=== PATIENT | female | born 1985 ===

== ENCOUNTER 2021-04-29 16:28 | Inpatient (IN) | payer SELFPAY ==
[2021-04-29] MEDS ORDERED: ONDANSETRON 4 MG/2 ML INJ IV ONE (17:31)
[2021-04-29] MEDS ORDERED: MORPHINE 4 MG/1 ML INJ IV ONE (17:31)
--- NOTE | 2021-04-29 17:32 | Emergency Department Report ---
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 Patient states that the pain woke up around 3 AM this morning. Patient reports associated nausea and vomiting. Patient states that she is about 4 months . She does not recall her last menstrual cycle. She has not started any care. She denies any vaginal bleeding, diarrhea, constipation or UTI symptoms. She denies any apparent fever or chills. She denies any ill contacts or recent travel. Only abdominal surgeries in the past 4-6 sections. She is G5, P3 AB1. MD Complaint: abdominal pain -: This morning Location: diffuse - Related Data Allergies Allergy/AdvReac Type Severity Reaction Status Date / Time No Known Allergies Allergy Verified 04/29/21 16:34 ED Physical Exam - General Limitations: Language Barrier General appearance: alert, in distress, obese - Head Head exam: Present: atraumatic, normocephalic, normal inspection - Neck Neck exam: Present: normal inspection, full ROM. Absent: meningismus - Respiratory Respiratory exam: Present: normal lung sounds bilaterally. Absent: respiratory distress, wheezes, rales, rhonchi, stridor - Cardiovascular Cardiovascular Exam: Present: regular rate, normal rhythm, normal heart sounds - GI/Abdominal GI/Abdominal exam: Present: soft, tenderness (Right upper quadrant, epigastric, and diffusely to the lower quadrants of the abdomen), guarding. Absent: distended, rebound, rigid - Neurological Exam Neurological exam: Present: alert, oriented X3, CN II-XII intact, normal gait - Psychiatric Psychiatric exam: Present: normal affect, normal mood - Skin Skin exam: Present: intact ED Medical Decision Making - Lab Data Result diagrams: 04/29/21 17:39 04/29/21 17:39 - Radiology Data Radiology results: report reviewed Patient: ASHWINI IRELAND MR#: [id number] : 1985 Acct:[id number] Age/Sex: 35 / F ADM Date: 04/29/21 Loc: ED Attending Dr: Ordering Physician: BOBY PALOMO Date of Service: 04/29/21 Procedure(s): US abdomen limited Accession Number(s): [id number] cc: BOBY PALOMO ULTRASOUND ABDOMEN, LIMITED INDICATION / CLINICAL INFORMATION: severe upper abd pain. Patient is 16 weeks . COMPARISON: None available. FINDINGS: PANCREAS: Visualized portion shows no significant abnormality. LIVER: No significant abnormality. Normal hepatopedal blood flow in the main portal vein. GALLBLADDER: Multiple tiny echogenic gallstones. No gallbladder wall thickening or edema. BILE DUCTS: No significant abnormality. Common bile duct measures 4.8 mm. FREE FLUID: None. ADDITIONAL FINDINGS: None. IMPRESSION: 1. Tiny gallstones but no sonographic evidence for acute cholecystitis. Signer Name: Gracie Walsh MD Signed: 04/29/2021 7:09 PM Workstation Name: [id number] Transcribed By: DT Dictated By: Jesús Walsh MD Electronically Authenticated By: Jesús Walsh MD Signed Date/Time: 04/29/211908 DD/ 07 TD/TT: Patient: ASHWINI IRELAND MR#: [id number] : 1985 Acct:[id number] Age/Sex: 35 / F ADM Date: 04/29/21 Loc: ED Attending Dr: Ordering Physician: BOBY PALOMO Date of Service: 04/29/21 Procedure(s): US OB >= 14 wk fetus add gest Accession Number(s): [id number] cc: BOBY PALOMO ULTRASOUND OBSTETRIC INDICATION / CLINICAL INFORMATION: 4mths preg/severe abd pain. - Clinical Gestational Age (GA) in weeks, days: 16, 4 TECHNIQUE: Transabdominal. COMPARISON: None available. FINDINGS: Single intrauterine . Biparietal Diameter = 4.4 cm = 19, 1 weeks, days Head Circumference = 15.4 cm = 18, 3 weeks, days Abdominal Circumference = 14.0 cm = 19, 2 weeks, days Femur Length = 2.3 cm = 18, 6 weeks, days Average Ultrasound Age (AUA) = 18, 6 weeks, days Heart Rate: 143 beats per minute. Estimated Weight in grams (if calculated): 290 g Estimated Weight Growth Percentile (if calculated): Not calculated Position: cephalic. Cervix: closed. Length in cm (if measured): Not measured. Placenta: anterior and free of the os. Amniotic Fluid Volume: Subjectively normal Amniotic Fluid Index (KATEY) in cm (if calculated): 4.7. Maternal Adnexa: Not demonstrated. IMPRESSION: 1. Single, living intrauterine with estimated sonographic age of 18, 6 weeks, days. 2. No acute sonographic abnormality. Signer Name: Gracie Walsh MD Signed: 04/29/2021 7:13 PM Workstation Name: [id number][id number] Transcribed By: DT Dictated By: Jesús Walsh MD Electronically Authenticated By: Jesús Walsh MD Signed Date/Time: 04/29/211912 DD/ 09 TD/TT: - Medical Decision Making 2114: Labs reviewed --CBC shows leukocytosis with white count of 15.9, remainder of her lab work unremarkable. Gallbladder ultrasound shows gallstones but no cholecystitis. OB ultrasound shows 18 weeks 6 days IUP. Patient was reassessed after giving IV fluids, morphine and Zofran. Patient states that she still in pain but more so in her right lower quadrant. Repeat abdominal exam shows that patient has moderate right lower quadrant tenderness with guarding. No rebound. No rigidity. Case was discussed with Dr. Gaston, who saw and evaluated patient. Case turned over to Dr. Gaston and see her note for details. ED Disposition Clinical Impression: Right lower quadrant abdominal pain, Leukocytosis, 18 weeks gestation of , Urine WBC increased, Dehydration, Nausea and vomiting Disposition: ADMITTED INPATIENT Condition: Stable Instructions: Abdominal Pain (ED) Referrals: PRIMARY CARE, [Primary Care Provider] - 3-5 Days <AMY GASTON - Last Filed: 04/29/21 22:12> ED Review of Systems ROS: Stated complaint: AB PAIN Other details as noted in HPI ED Course Vital Signs 04/29/21 04/29/21 04/29/21 16:34 21:38 21:54 Temperature 99.0 F Pulse Rate 85 84 Respiratory 16 14 Rate Blood Pressure 149/91 133/80 [Left] O2 Sat by Pulse 100 100 Oximetry - Consultations Consultation #1: 04/29/21 22:11 I did discuss case with Dr. Alves general surgeon on-call see MDM. Case discussed with RELAY TESTER HELPER on-call Dr. Calle who has agreed to admit the patient. ED Medical Decision Making - Lab Data Result diagrams: 04/29/21 17:39 04/29/21 17:39 - Medical Decision Making I evaluated patient at the bedside with help of photographs curator Vincent. Patient's pain now localized to the right lower quadrant leukocytosis with out signs of UTI. Symptoms concerning for acute appendicitis in . I discussed case with Dr. Alves general surgeon who advised for definitive imaging to confirm diagnosis to prevent an unnecessary surgery. I discussed gloria ging options with patient. At this time patient does not have peritoneal signs suggestive of perforated appendicitis and is not septic or ill-appearing. It was discussed that if patient has nonruptured appendicitis she would be treated with IV antibiotics with plan for surgery tomorrow. Since patient is stable at this time patient was provided the option for CT scan with radiation exposure to fetus (explained low risk for injury) tonight or antibiotic treatment with plan for MRI tomorrow. Patient prefers to wait for MRI tomorrow and will be treated empirically with Zosyn for possible appendicitis. RELAY TESTER HELPER also consulted and case discussed with Dr. Calle who has agreed to admit the patient. Critical Care Time: No Critical care attestation.: If time is entered above; I have spent that time in minutes in the direct care of this critically ill patient, excluding procedure time. ED Disposition Is pt being admited?: Yes Time of Disposition: 21:59
[2021-04-29 18:21] LABS: Basophils % (Auto) 0.2 % (0.0-1.8); Eosinophils % (Auto) 0.2 % (0.0-4.3); Hemoglobin 12.1 gm/dl (10.1-14.3); Lymphocytes # (Auto) 1.3 K/mm3 (1.2-5.4); Lymphocytes % (Auto) 8.1 % (13.4-35.0); Mean Corpuscular HGB Conc 33 % (30-34); Mean Corpuscular Volume 73 fl (79-97); Monocytes # (Auto) 0.5 K/mm3 (0.0-0.8); Platelet Count 301 K/mm3 (140-440); Red Blood Count 5.05 M/mm3 (3.65-5.03); Red Cell Distribution Width 16.9 % (13.2-15.2)
[2021-04-29 18:59] LABS: Alanine Aminotransferase 12 units/L (7-56); Albumin 3.8 g/dL (3.9-5); Blood Urea Nitrogen 7 mg/dL (7-17); Calcium 8.9 mg/dL (8.4-10.2); Hemolysis Index 4
[2021-04-29 19:00] LABS: BUN/Creatinine Ratio 23
--- NOTE | 2021-04-29 19:13 | Ultrasound Report ---
ULTRASOUND ABDOMEN, LIMITED INDICATION / CLINICAL INFORMATION: severe upper abd pain. Patient is 16 weeks . COMPARISON: None available. FINDINGS: PANCREAS: Visualized portion shows no significant abnormality. LIVER: No significant abnormality. Normal hepatopedal blood flow in the main portal vein. GALLBLADDER: Multiple tiny echogenic gallstones. No gallbladder wall thickening or edema. BILE DUCTS: No significant abnormality. Common bile duct measures 4.8 mm. FREE FLUID: None. ADDITIONAL FINDINGS: None. IMPRESSION: 1. Tiny gallstones but no sonographic evidence for acute cholecystitis. Signer Name: Gracie Walsh MD Signed: 04/29/2021 7:09 PM Workstation Name: [id number]
--- NOTE | 2021-04-29 19:17 | Ultrasound Report ---
ULTRASOUND OBSTETRIC INDICATION / CLINICAL INFORMATION: 4mths preg/severe abd pain. - Clinical Gestational Age (GA) in weeks, days: 16, 4 TECHNIQUE: Transabdominal. COMPARISON: None available. FINDINGS: Single intrauterine . Biparietal Diameter = 4.4 cm = 19, 1 weeks, days Head Circumference = 15.4 cm = 18, 3 weeks, days Abdominal Circumference = 14.0 cm = 19, 2 weeks, days Femur Length = 2.3 cm = 18, 6 weeks, days Average Ultrasound Age (AUA) = 18, 6 weeks, days Heart Rate: 143 beats per minute. Estimated Weight in grams (if calculated): 290 g Estimated Weight Growth Percentile (if calculated): Not calculated Position: cephalic. Cervix: closed. Length in cm (if measured): Not measured. Placenta: anterior and free of the os. Amniotic Fluid Volume: Subjectively normal Amniotic Fluid Index (KATEY) in cm (if calculated): 4.7. Maternal Adnexa: Not demonstrated. IMPRESSION: 1. Single, living intrauterine with estimated sonographic age of 18, 6 weeks, days. 2. No acute sonographic abnormality. Signer Name: Gracie Walsh MD Signed: 04/29/2021 7:13 PM Workstation Name: [id number]
[2021-04-29] MEDS ORDERED: SODIUM CHLORIDE 0.9% 1000 ML 1,000 ML IV ONE (19:36)
[2021-04-29 20:39] LABS: Bilirubin,Urine NEG (Negative); Blood,Urine NEG (Negative); Color,Urine Yellow (Yellow); Urobilinogen,Urine < 2.0 mg/dL (<2.0)
[2021-04-29] MEDS ORDERED: PIPERACIL/TAZOBACTA 4.5/NS 100 4.5 GM/100 ML VIAL IV ONE (21:31)
[2021-04-29] MEDS ORDERED: MORPHINE 2 MG/1 ML INJ IV ONE (21:38)
--- NOTE | 2021-04-29 21:43 | Event Note ---
Date: 04/29/[address] Gaston about patient. Will see patient tomorrow, in the meantime she will start abx and talk to the patient about imaging options in attempt to confirmatory diagnosis.
[2021-04-29] MEDS ORDERED: ACETAMINOPHEN 325 MG TAB PO PRN (22:10)
--- NOTE | 2021-04-29 22:53 | History and Physical Report ---
History of Present Illness Date of examination: 04/29/21 Date of admission: 04/29/2021 Chief complaint: RLQ pain History of present illness: 35 y/o at 18-6/7 weeks presents to main ED reporting sudden onset dull RLQ pain with accompanying N/V. Leukocytosis noted on CBC. General surgery was consulted. Gallstones noted on abdominal ultrasound, but no cholecystitis and LFT's WNL. The patient is being admitted for observation, CBC in AM, and MRI abdomen abdomen in AM to evaluate for appendicitis. Empiric Zosyn ordered. Patient NPO. 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 Family/Genetic History: none - Obstetrical History Expected Date of Delivery: 09/24/21 Actual Gestation: 19 Week(s) 0 Day(s) : 5 Para: 3 Hx # Term Pregnancies: 3 Spontaneous Abortions: 1 Medications and Allergies Allergies Allergy/AdvReac Type Severity Reaction Status Date / Time No Known Allergies Allergy Verified 04/29/21 16:34 Active Meds: Active Medications Dextrose/Lactated Ringer's (D5lr) 1,000 mls @ 125 mls/hr IV DIRECT KEVIN Piperacillin Sod/Tazobactam Sod (Zosyn/Ns 4.5gm/100ml) 4.5 gm in 100 mls @ 200 mls/hr IV Q6HR ONE; Protocol Stop: 04/29/21 23:18 Morphine Sulfate (Morphine 2 Mg/1 Ml Inj) 2 mg IV Q4H PRN PRN Reason: Pain, Mild (1-3) Review of Systems All systems: negative Gastrointestinal: abdominal pain, nausea, vomiting - Vital Signs Vital signs: Vital Signs Pulse Resp BP Pulse Ox 85 16 149/91 100 04/29/21 16:34 04/29/21 16:34 04/29/21 16:34 04/29/21 16:34 Temp Pulse Resp BP Pulse Ox 99.0 F 84 14 133/80 100 04/29/21 21:54 04/29/21 21:38 04/29/21 22:28 04/29/21 21:38 04/29/21 21:38 - Physical Exam Breasts: Positive: normal Cardiovascular: Regular rate Lungs: Positive: Clear to auscultation Abdomen: Positive: tenderness Genitourinary (Female): Positive: normal external genitalia, normal perenium Vulva: both: normal Vagina: Positive: normal moisture Uterus: Positive: enlarged Adnexa: both: normal Anus/Rectum: Positive: normal perianal skin Deep Tendon Reflex Grade: Normal +2 - Obstetrical FHR: auscultation normal Results Result Diagrams: 04/29/21 17:39 04/29/21 17:39 Abnormal lab results 04/29/21 04/29/21 04/29/21 Range/Units 17:39 17:39 17:39 WBC 15.9 H (4.5-11.0) K/mm3 RBC 5.05 H (3.65-5.03) M/mm3 MCV 73 L (79-97) fl MCH 24 L (28-32) pg RDW 16.9 H (13.2-15.2) % Lymph % (Auto) 8.1 L (13.4-35.0) % Seg Neutrophils % 88.5 H (40.0-70.0) % Seg Neutrophils # 14.1 H (1.8-7.7) K/mm3 Sodium 134 L (137-145) mmol/L Carbon Dioxide 21 L (22-30) mmol/L Creatinine 0.3 L (0.6-1.2) mg/dL Glucose 145 H (65-100) mg/dL Albumin 3.8 L (3.9-5) g/dL HCG, Quant 33983 H (0-4) mIU/mL Urine WBC (Auto) (0.0-6.0) /HPF 04/29/21 Range/Units Unknown WBC (4.5-11.0) K/mm3 RBC (3.65-5.03) M/mm3 MCV (79-97) fl MCH (28-32) pg RDW (13.2-15.2) % Lymph % (Auto) (13.4-35.0) % Seg Neutrophils % (40.0-70.0) % Seg Neutrophils # (1.8-7.7) K/mm3 Sodium (137-145) mmol/L Carbon Dioxide (22-30) mmol/L Creatinine (0.6-1.2) mg/dL Glucose (65-100) mg/dL Albumin (3.9-5) g/dL HCG, Quant (0-4) mIU/mL Urine WBC (Auto) 10.0 H (0.0-6.0) /HPF All other labs normal. Ultrasound: report reviewed MRI: pending Assessment and Plan - Patient Problems (1) 18 weeks gestation of Current Visit: Yes Status: Acute Plan to address problem: No care yet. EDC is based on todays sonogram. (2) Right lower quadrant abdominal pain Current Visit: Yes Status: Acute Plan to address problem: Appendicitis is suspected. General surgery was consulted and saw patient in E.D.. Repeat CBC in AM. MRI abdomen in AM. Zosyn being given. (3) Advanced maternal age during in second trimester Current Visit: Yes Status: Acute Plan to address problem: Needs to F/U with MFM as an outpatient. I recommend cfDNA NIPT.
[2021-04-29] MEDS ORDERED: D5W/LACTATED RINGERS 1,000 ML IV SCH (23:00)
[2021-04-29] MEDS: MORPHINE 2 MG/1 ML INJ IV PRN (23:35)
[2021-04-30] MEDS: MORPHINE 2 MG/1 ML INJ IV PRN ×2 (00:52→07:50)
[2021-04-30] MEDS: PIPERACIL/TAZOBACTA 4.5/NS 100 4.5 GM/100 ML VIAL IV SCH ×4 (05:38→22:50)
[2021-04-30 07:26] LABS: Basophils # (Auto) 0.1 K/mm3 (0.0-0.1); Basophils % (Auto) 0.6 % (0.0-1.8); Eosinophils # (Auto) 0.1 K/mm3 (0.0-0.4); Eosinophils % (Auto) 0.5 % (0.0-4.3); Hematocrit 34.7 % (30.3-42.9); Hemoglobin 11.4 gm/dl (10.1-14.3); Lymphocytes # (Auto) 1.8 K/mm3 (1.2-5.4); Lymphocytes % (Auto) 12.5 % (13.4-35.0); Mean Corpuscular HGB Conc 33 % (30-34); Mean Corpuscular Volume 73 fl (79-97); Monocytes # (Auto) 0.7 K/mm3 (0.0-0.8); Monocytes % (Auto) 5.2 % (0.0-7.3); Platelet Count 311 K/mm3 (140-440); Red Blood Count 4.74 M/mm3 (3.65-5.03); Red Cell Distribution Width 17.4 % (13.2-15.2)
--- NOTE | 2021-04-30 10:26 | Magnetic Resonance Report ---
MRI ABDOMEN WITHOUT CONTRAST INDICATION / CLINICAL INFORMATION: RLQ pain, Leukocytosis, 18 weeks . TECHNIQUE: Multiplanar, multisequence series were obtained through the abdomen. COMPARISON: Ultrasound abdomen limited performed yesterday FINDINGS: LIVER: The visualized liver is unremarkable. GALLBLADDER: Multiple small gallstones are identified in the gallbladder. No abnormal dilatation or w all thickening. BILE DUCTS: No significant abnormality. PANCREAS: No significant abnormality. SPLEEN: No significant abnormality. ADRENALS: No significant abnormality. RIGHT KIDNEY AND URETER: There is mild right hydronephrosis likely secondary to external compression of the right ureter from an intrauterine . No focal right renal lesion is appreciated. LEFT KIDNEY AND URETER: No significant abnormality. STOMACH AND VISUALIZED BOWEL: No significant abnormality. The appendix is identified in the right low er quadrant and measures 7 mm in diameter. No evidence for acute appendicitis. PERITONEUM: Trace ascites is noted in the lower abdomen. No free air. No fluid collection. LYMPH NODES: No significant adenopathy. AORTA and ARTERIES: No significant abnormality. IVC and VEINS: No significant abnormality. ADDITIONAL FINDINGS: The uterus is enlarged and contains an intrauterine in cephalic positi on. The placenta is anterior. Amniotic fluid volume appears normal. No gross abnormality is denisa reciated. SKELETAL SYSTEM: No significant abnormality. IMPRESSION: Mild right hydronephrosis. Cholelithiasis. The appendix is visualized in the right lower quadrant and measures 7 mm in diameter which is within normal limits. No convincing evidence for acute appendicitis on noncontrast MR. Signer Name: Herman Bashir Jr, MD Signed: 04/30/2021 10:21 AM Workstation Name: [id number]
--- NOTE | 2021-04-30 11:00 | Progress Note ---
Assessment and Plan HD#2, IUP at 18wks with RLQ pain not improving inspite or MRI neg for appendicitis, trace ascites noted and mild right hydro and multiple tiny gall stones 1. Dr. Alves (gen surg) notified of MRI results 2. Consult done to [facility] 3. Await ROM plus results for completion, however normal KATEY on MRI seen 4. Will continue antibiotics zosyn and hydration 5. Follow cbc trends and urine culture in the AM Subjective Date of service: 04/30/21 Principal diagnosis: HD#2 with RLQ abd pain, leucocytosis; MRI trace ascites Interval history: pt continues to complain of pain to RLQ; denies N/V/F/C; denies LOF or vag bleed. Too early for movement Objective - Constitutional Vitals: Vital Signs - 12hr 04/30/21 04/30/21 04/30/21 00:42 00:47 00:48 Temperature Pulse Rate 83 84 82 Respiratory Rate Blood Pressure 127/76 Blood Pressure [Left] Blood Pressure [Right] O2 Sat by Pulse 98 97 Oximetry 04/30/21 04/30/21 04/30/21 00:49 00:52 00:57 Temperature 98.8 F Pulse Rate 81 85 88 Respiratory 15 Rate Blood Pressure Blood Pressure 127/76 [Left] Blood Pressure [Right] O2 Sat by Pulse 98 97 98 Oximetry 04/30/21 04/30/21 04/30/21 01:02 01:07 01:12 Temperature Pulse Rate 87 87 107 H Respiratory Rate Blood Pressure Blood Pressure [Left] Blood Pressure [Right] O2 Sat by Pulse 98 99 97 Oximetry 04/30/21 04/30/21 04/30/21 01:17 01:22 01:27 Temperature Pulse Rate 111 H 99 H 90 Respiratory Rate Blood Pressure Blood Pressure [Left] Blood Pressure [Right] O2 Sat by Pulse 99 99 99 Oximetry 04/30/21 04/30/21 04/30/21 01:32 01:37 01:42 Temperature Pulse Rate 93 H 93 H 94 H Respiratory Rate Blood Pressure Blood Pressure [Left] Blood Pressure [Right] O2 Sat by Pulse 99 98 99 Oximetry 04/30/21 04/30/21 04/30/21 01:47 01:52 01:57 Temperature Pulse Rate 94 H 92 H 90 Respiratory Rate Blood Pressure Blood Pressure [Left] Blood Pressure [Right] O2 Sat by Pulse 99 98 98 Oximetry 04/30/21 04/30/21 04/30/21 02:02 02:07 02:12 Temperature Pulse Rate 93 H 90 94 H Respiratory Rate Blood Pressure Blood Pressure [Left] Blood Pressure [Right] O2 Sat by Pulse 98 98 98 Oximetry 04/30/21 04/30/21 04/30/21 02:17 02:22 02:27 Temperature Pulse Rate 92 H 94 H 92 H Respiratory Rate Blood Pressure Blood Pressure [Left] Blood Pressure [Right] O2 Sat by Pulse 98 98 99 Oximetry 04/30/21 04/30/21 04/30/21 02:32 02:37 02:42 Temperature Pulse Rate 93 H 93 H 92 H Respiratory Rate Blood Pressure Blood Pressure [Left] Blood Pressure [Right] O2 Sat by Pulse 98 98 98 Oximetry 04/30/21 04/30/21 04/30/21 02:47 02:52 02:57 Temperature Pulse Rate 89 90 90 Respiratory Rate Blood Pressure Blood Pressure [Left] Blood Pressure [Right] O2 Sat by Pulse 97 99 98 Oximetry 04/30/21 04/30/21 04/30/21 03:02 03:07 03:12 Temperature Pulse Rate 91 H 93 H 89 Respiratory Rate Blood Pressure Blood Pressure [Left] Blood Pressure [Right] O2 Sat by Pulse 98 98 98 Oximetry 04/30/21 04/30/21 04/30/21 03:17 03:22 03:27 Temperature Pulse Rate 88 87 95 H Respiratory Rate Blood Pressure Blood Pressure [Left] Blood Pressure [Right] O2 Sat by Pulse 100 99 100 Oximetry 04/30/21 04/30/21 04/30/21 03:32 03:37 03:42 Temperature Pulse Rate 95 H 95 H 91 H Respiratory Rate Blood Pressure Blood Pressure [Left] Blood Pressure [Right] O2 Sat by Pulse 99 100 100 Oximetry 04/30/21 04/30/21 04/30/21 03:47 03:52 03:57 Temperature Pulse Rate 91 H 91 H 92 H Respiratory Rate Blood Pressure Blood Pressure [Left] Blood Pressure [Right] O2 Sat by Pulse 98 98 97 Oximetry 04/30/21 04/30/21 04/30/21 04:02 04:07 04:12 Temperature Pulse Rate 90 86 91 H Respiratory Rate Blood Pressure Blood Pressure [Left] Blood Pressure [Right] O2 Sat by Pulse 98 99 98 Oximetry 04/30/21 04/30/21 04/30/21 04:17 04:22 04:27 Temperature Pulse Rate 91 H 92 H 89 Respiratory Rate Blood Pressure Blood Pressure [Left] Blood Pressure [Right] O2 Sat by Pulse 98 98 98 Oximetry 04/30/21 04/30/21 04/30/21 04:32 04:37 04:42 Temperature Pulse Rate 90 88 88 Respiratory Rate Blood Pressure Blood Pressure [Left] Blood Pressure [Right] O2 Sat by Pulse 98 98 97 Oximetry 04/30/21 04/30/21 04/30/21 04:47 04:52 04:57 Temperature Pulse Rate 88 87 90 Respiratory Rate Blood Pressure Blood Pressure [Left] Blood Pressure [Right] O2 Sat by Pulse 97 97 98 Oximetry 04/30/21 04/30/21 04/30/21 05:02 05:07 05:12 Temperature Pulse Rate 88 90 91 H Respiratory Rate Blood Pressure Blood Pressure [Left] Blood Pressure [Right] O2 Sat by Pulse 97 97 98 Oximetry 04/30/21 04/30/21 04/30/21 05:17 05:22 05:27 Temperature Pulse Rate 91 H 100 H 88 Respiratory Rate Blood Pressure Blood Pressure [Left] Blood Pressure [Right] O2 Sat by Pulse 100 100 100 Oximetry 04/30/21 04/30/21 04/30/21 05:32 05:37 05:42 Temperature Pulse Rate 90 95 H 91 H Respiratory Rate Blood Pressure Blood Pressure [Left] Blood Pressure [Right] O2 Sat by Pulse 99 98 98 Oximetry 04/30/21 04/30/21 04/30/21 05:47 05:52 05:57 Temperature Pulse Rate 92 H 88 87 Respiratory Rate Blood Pressure Blood Pressure [Left] Blood Pressure [Right] O2 Sat by Pulse 98 97 97 Oximetry 04/30/21 04/30/21 04/30/21 06:02 06:07 06:12 Temperature Pulse Rate 90 90 91 H Respiratory Rate Blood Pressure Blood Pressure [Left] Blood Pressure [Right] O2 Sat by Pulse 97 97 97 Oximetry 04/30/21 04/30/21 04/30/21 06:17 06:22 06:27 Temperature Pulse Rate 96 H 93 H 92 H Respiratory Rate Blood Pressure Blood Pressure [Left] Blood Pressure [Right] O2 Sat by Pulse 98 97 97 Oximetry 04/30/21 04/30/2104/30/22 06:32 06:37 06:42 Temperature Pulse Rate 92 H 96 H 94 H Respiratory Rate Blood Pressure Blood Pressure [Left] Blood Pressure [Right] O2 Sat by Pulse 97 98 96 Oximetry 04/30/21 04/30/21 04/30/21 06:47 06:52 06:57 Temperature Pulse Rate 91 H 90 92 H Respiratory Rate Blood Pressure Blood Pressure [Left] Blood Pressure [Right] O2 Sat by Pulse 98 98 100 Oximetry 04/30/21 04/30/21 04/30/21 07:02 07:07 07:12 Temperature Pulse Rate 90 92 H 103 H Respiratory Rate Blood Pressure Blood Pressure [Left] Blood Pressure [Right] O2 Sat by Pulse 97 97 98 Oximetry 04/30/21 04/30/21 04/30/21 07:17 07:22 07:27 Temperature Pulse Rate 90 90 92 H Respiratory Rate Blood Pressure Blood Pressure [Left] Blood Pressure [Right] O2 Sat by Pulse 97 96 97 Oximetry 04/30/21 04/30/21 04/30/21 07:32 07:37 07:42 Temperature Pulse Rate 93 H 90 97 H Respiratory Rate Blood Pressure Blood Pressure [Left] Blood Pressure [Right] O2 Sat by Pulse 97 98 96 Oximetry 04/30/21 04/30/21 04/30/21 07:45 07:47 07:52 Temperature 98.6 F Pulse Rate 86 87 85 Respiratory 14 Rate Blood Pressure 123/70 Blood Pressure [Left] Blood Pressure 123/70 [Right] O2 Sat by Pulse 96 96 96 Oximetry 04/30/21 04/30/21 04/30/21 07:57 08:02 08:10 Temperature Pulse Rate 93 H 87 95 H Respiratory Rate Blood Pressure Blood Pressure [Left] Blood Pressure [Right] O2 Sat by Pulse 96 97 97 Oximetry 04/30/21 04/30/21 04/30/21 08:15 08:20 08:25 Temperature Pulse Rate 87 87 87 Respiratory Rate Blood Pressure Blood Pressure [Left] Blood Pressure [Right] O2 Sat by Pulse 96 96 96 Oximetry 04/30/21 04/30/21 04/30/21 08:30 08:35 08:40 Temperature Pulse Rate 95 H 109 H 96 H Respiratory Rate Blood Pressure 135/79 Blood Pressure [Left] Blood Pressure [Right] O2 Sat by Pulse 100 98 98 Oximetry 04/30/21 04/30/21 04/30/21 08:45 08:50 08:55 Temperature Pulse Rate 92 H 93 H 95 H Respiratory Rate Blood Pressure Blood Pressure [Left] Blood Pressure [Right] O2 Sat by Pulse 99 99 99 Oximetry 04/30/21 04/30/21 04/30/21 09:00 09:05 10:03 Temperature Pulse Rate 101 H 94 H 94 H Respiratory Rate Blood Pressure Blood Pressure [Left] Blood Pressure [Right] O2 Sat by Pulse 99 99 96 Oximetry 04/30/21 04/30/21 04/30/21 10:04 10:08 10:10 Temperature Pulse Rate 84 79 86 Respiratory Rate Blood Pressure 125/68 129/69 Blood Pressure [Left] Blood Pressure [Right] O2 Sat by Pulse 98 Oximetry 04/30/21 04/30/21 04/30/21 10:13 10:18 10:23 Temperature Pulse Rate 89 92 H 87 Respiratory Rate Blood Pressure Blood Pressure [Left] Blood Pressure [Right] O2 Sat by Pulse 97 97 99 Oximetry 04/30/21 04/30/21 04/30/21 10:28 10:33 10:38 Temperature Pulse Rate 82 88 94 H Respiratory Rate Blood Pressure Blood Pressure [Left] Blood Pressure [Right] O2 Sat by Pulse 98 100 100 Oximetry 04/30/21 04/30/21 04/30/21 10:40 10:43 10:48 Temperature Pulse Rate 109 H 103 H 102 H Respiratory Rate Blood Pressure 136/78 Blood Pressure [Left] Blood Pressure [Right] O2 Sat by Pulse 97 97 Oximetry 04/30/21 10:53 Temperature Pulse Rate 103 H Respiratory Rate Blood Pressure Blood Pressure [Left] Blood Pressure [Right] O2 Sat by Pulse 97 Oximetry General appearance: Present: well-nourished - Neck Neck: normal ROM - Respiratory Respiratory effort: normal - Breasts Breasts: deferred - Cardiovascular Rhythm: other (mild tacchy) - Gastrointestinal General gastrointestinal: Present: soft, tender (RLQ only, not the fundus) - Genitourinary Female genitourinary: deferred, other (FHR per nurse in the 180's on doppler) - Integumentary Integumentary: warm, dry - Neurologic Neurologic: moves all extremities - Psychiatric Psychiatric: cooperative - Labs CBC & Chem 7: 04/30/21 07:15 04/29/21 17:39 Labs: Abnormal lab results 04/29/21 04/29/21 04/29/21 Range/Units 17:39 17:39 17:39 WBC 15.9 H (4.5-11.0) K/mm3 RBC 5.05 H (3.65-5.03) M/mm3 MCV 73 L (79-97) fl MCH 24 L (28-32) pg RDW 16.9 H (13.2-15.2) % Lymph % (Auto) 8.1 L (13.4-35.0) % Seg Neutrophils % 88.5 H (40.0-70.0) % Seg Neutrophils # 14.1 H (1.8-7.7) K/mm3 Sodium 134 L (137-145) mmol/L Carbon Dioxide 21 L (22-30) mmol/L Creatinine 0.3 L (0.6-1.2) mg/dL Glucose 145 H (65-100) mg/dL Albumin 3.8 L (3.9-5) g/dL HCG, Quant [id number] H (0-4) mIU/mL Urine WBC (Auto) (0.0-6.0) /HPF 04/29/21 04/30/21 Range/Units Unknown 07:15 WBC 14.1 H (4.5-11.0) K/mm3 RBC (3.65-5.03) M/mm3 MCV 73 L (79-97) fl MCH 24 L (28-32) pg RDW 17.4 H (13.2-15.2) % Lymph % (Auto) 12.5 L (13.4-35.0) % Seg Neutrophils % 81.2 H (40.0-70.0) % Seg Neutrophils # 11.4 H (1.8-7.7) K/mm3 Sodium (137-145) mmol/L Carbon Dioxide (22-30) mmol/L Creatinine (0.6-1.2) mg/dL Glucose (65-100) mg/dL Albumin (3.9-5) g/dL HCG, Quant (0-4) mIU/mL Urine WBC (Auto) 10.0 H (0.0-6.0) /HPF Medications & Allergies - Medications Allergies/Adverse Reactions: Allergies No Known Allergies Allergy (Verified 04/29/21 16:34) Active Medications: Generic Name Dose Route Start Last Admin Trade Name Freq PRN Reason Stop Dose Admin Dextrose/Lactated Ringer's 1,000 mls @ 125 mls/hr 04/29/21 23:00 04/30/21 00:52 D5lr IV 125 mls/hr DIRECT KEVIN Administration Piperacillin Sod/Tazobactam Sod 4.5 gm in 100 mls @ 200 mls/hr 04/30/21 04:00 04/30/21 05:38 Zosyn/Ns 4.5gm/100ml IV 200 mls/hr Q6H KEVIN Administration Protocol Morphine Sulfate 2 mg 04/29/21 22:51 04/30/21 07:50 Morphine 2 Mg/1 Ml Inj IV 2 mg Q4H PRN Administration Pain, Mild (1-3)
--- NOTE | 2021-04-30 12:57 | Consultation ---
History of Present Illness Consult date: 04/30/21 Reason for consult: abdominal pain - History of present illness History of present illness: 35-year-old female 18 weeks presents to the emergency room with a 1 day history of right lower quadrant pain 7/10 nonradiating. Pain is made worse by moving around. She is also complaining of some nausea and vomiting but none si nce admission. She says she has not had this pain prior to yesterday. General surgery called for concern of acute appendicitis. Due to concern for radiation for the fetus patient not have a CT scan last night but had an MRI of her abdomen and pelvis this morning. The appendix was seen as relatively normal with a borderline dilation at 7 mm. Interview and exam performed with the help of a certified spanish medical interpreter. Past History Past Medical History: No medical history Past Surgical History: Social history: denies: smoking, alcohol abuse Medications and Allergies Allergies Allergy/AdvReac Type Severity Reaction Status Date / Time No Known Allergies Allergy Verified 04/29/21 16:34 Home Medications Medication Instructions Recorded Confirmed Last Taken Type No Known Home Medications [No 04/30/21 04/30/21 Unknown History Reported Home Medications] Active Meds: Active Medications Dextrose/Lactated Ringer's (D5lr) 1,000 mls @ 125 mls/hr IV DIRECT KEVIN Last Admin: 04/30/21 00:52 Dose: 125 mls/hr Piperacillin Sod/Tazobactam Sod (Zosyn/Ns 4.5gm/100ml) 4.5 gm in 100 mls @ 200 mls/hr IV Q6H KEVIN; Protocol Last Admin: 04/30/21 11:25 Dose: 200 mls/hr Morphine Sulfate (Morphine 2 Mg/1 Ml Inj) 2 mg IV Q4H PRN PRN Reason: Pain, Mild (1-3) Last Admin: 04/30/21 07:50 Dose: 2 mg Review of Systems All systems: negative - Gastrointestinal abdominal pain, nausea, vomiting, no melena Exam Vital Signs Pulse Resp BP Pulse Ox 85 16 149/91 100 04/29/21 16:34 04/29/21 16:34 04/29/21 16:34 04/29/21 16:34 - General physical appearance Positive: well developed, no distress, moderate pain - Eyes Positive: PERRL. Negative: icteric - ENT Positive: no hearing loss - Respiratory Positive: normal expansion, normal respiratory effort - Cardiovascular Heart Sounds: Present: S1 & S2 - Extremities Extremities: no ischemia - Abdomen Abdomen: Present: soft, other (Gravid, tenderness to palpation of right lower quadrant). Absent: guarding, rigid Results - Labs 04/30/21 07:15 04/29/21 17:39 Abnormal lab results 04/29/21 04/29/21 04/29/21 Range/Units 17:39 17:39 17:39 WBC 15.9 H (4.5-11.0) K/mm3 RBC 5.05 H (3.65-5.03) M/mm3 MCV 73 L (79-97) fl MCH 24 L (28-32) pg RDW 16.9 H (13.2-15.2) % Lymph % (Auto) 8.1 L (13.4-35.0) % Seg Neutrophils % 88.5 H (40.0-70.0) % Seg Neutrophils # 14.1 H (1.8-7.7) K/mm3 Sodium 134 L (137-145) mmol/L Carbon Dioxide 21 L (22-30) mmol/L Creatinine 0.3 L (0.6-1.2) mg/dL Glucose 145 H (65-100) mg/dL Albumin 3.8 L (3.9-5) g/dL HCG, Quant [id number] H (0-4) mIU/mL Urine WBC (Auto) (0.0-6.0) /HPF 04/29/21 04/30/21 Range/Units Unknown 07:15 WBC 14.1 H (4.5-11.0) K/mm3 RBC (3.65-5.03) M/mm3 MCV 73 L (79-97) fl MCH 24 L (28-32) pg RDW 17.4 H (13.2-15.2) % Lymph % (Auto) 12.5 L (13.4-35.0) % Seg Neutrophils % 81.2 H (40.0-70.0) % Seg Neutrophils # 11.4 H (1.8-7.7) K/mm3 Sodium (137-145) mmol/L Carbon Dioxide (22-30) mmol/L Creatinine (0.6-1.2) mg/dL Glucose (65-100) mg/dL Albumin (3.9-5) g/dL HCG, Quant (0-4) mIU/mL Urine WBC (Auto) 10.0 H (0.0-6.0) /HPF Diabetes panel 04/29/21 Range/Units 17:39 Sodium 134 L (137-145) mmol/L Potassium 3.8 (3.6-5.0) mmol/L Chloride 99.3 (98-107) mmol/L Carbon Dioxide 21 L (22-30) mmol/L BUN 7 (7-17) mg/dL Creatinine 0.3 L (0.6-1.2) mg/dL Glucose 145 H (65-100) mg/dL Calcium 8.9 (8.4-10.2) mg/dL AST 14 (5-40) units/L ALT 12 (7-56) units/L Alkaline Phosphatase 77 (35-129) units/L Total Protein 7.3 (6.3-8.2) g/dL Albumin 3.8 L (3.9-5) g/dL Calcium panel 04/29/21 Range/Units 17:39 Calcium 8.9 (8.4-10.2) mg/dL Albumin 3.8 L (3.9-5) g/dL Pituitary panel 04/29/21 Range/Units 17:39 Sodium 134 L (137-145) mmol/L Potassium 3.8 (3.6-5.0) mmol/L Chloride 99.3 (98-107) mmol/L Carbon Dioxide 21 L (22-30) mmol/L BUN 7 (7-17) mg/dL Creatinine 0.3 L (0.6-1.2) mg/dL Glucose 145 H (65-100) mg/dL Calcium 8.9 (8.4-10.2) mg/dL Adrenal panel 04/29/21 Range/Units 17:39 Sodium 134 L (137-145) mmol/L Potassium 3.8 (3.6-5.0) mmol/L Chloride 99.3 (98-107) mmol/L Carbon Dioxide 21 L (22-30) mmol/L BUN 7 (7-17) mg/dL Creatinine 0.3 L (0.6-1.2) mg/dL Glucose 145 H (65-100) mg/dL Calcium 8.9 (8.4-10.2) mg/dL Total Bilirubin 0.30 (0.1-1.2) mg/dL AST 14 (5-40) units/L ALT 12 (7-56) units/L Alkaline Phosphatase 77 (35-129) units/L Total Protein 7.3 (6.3-8.2) g/dL Albumin 3.8 L (3.9-5) g/dL Assessment and Plan 35-year-old female with right lower quadrant pain in her second trimester afebrile and stable with leukocytosis, and appendix that is borderline in size for dilation seen on MRI. Clinically pain is consistent with appendicitis. Patient was consented with the help of an interpreter for the deaf for laparoscopic appendectomy. Patient expressed understanding of the risk and benefits. We will continue antibiotics in the meantime.
[2021-04-30] MEDS ORDERED: LACTATED RINGERS 1,000 ML ONE (14:38)
[2021-04-30] MEDS: LACTATED RINGERS 1,000 ML IV SCH (14:44)
[2021-04-30] MEDS ORDERED: ROCURONIUM 50 MG/5 ML INJ IV ONE (15:28)
[2021-04-30] MEDS ORDERED: propofoL 200 MG/20 ML VIAL IV ONE (15:28)
[2021-04-30] MEDS ORDERED: fentaNYL 100 MCG/2 ML INJ ONE (15:28)
--- NOTE | 2021-04-30 15:53 | Anesthesia Consultation ---
Anesthesia Consult and Med Hx Date of service: 04/30/21 - Airway Anesthetic Teeth Evaluation: Good ROM Head & Neck: Adequate Mental/Hyoid Distance: Adequate Mallampati Class: Class II Intubation Access Assessment: Probably Good - Pre-Operative Health Status ASA Pre-Surgery Classification: ASA3 Proposed Anesthetic Plan: General - Pulmonary Hx Respiratory Symptoms: No - Cardiovascular System Hx Hypertension: No - Central Nervous System CVA: No - Endocrine Hx Renal Disease: No Hx Liver Disease: No Hx Insulin Dependent Diabetes: No Hx Non-Insulin Dependent Diabetes: No Hx Thyroid Disease: No - Hematic Hx Anemia: No - Additional Comments Anesthesia Medical History Comments: Patient is 18wks presenting with acute appendicitis. certified court/medical interpreter #[id number] used for interview. Patient denies any addtional questions/concerns regarding anesthetic risks to self or fetus and states that she "is very hungry and just wants to be done with the surgery so she can eat." Preop FHTs 150s checked at 1355.
--- NOTE | 2021-04-30 15:53 | Anesthesia Day of Surgery ---
Anesthesia Day of Surgery - Day of Surgery Patient Examined: Yes Patient H&P Reviewed: Yes Patient is NPO: Yes
[2021-04-30] MEDS ORDERED: fentaNYL 100 MCG/2 ML INJ IV PRN (16:00)
[2021-04-30] MEDS ORDERED: SCOPOLAMINE TRANSDERMAL PATCH 72 HR TD NR (16:00)
[2021-04-30] MEDS ORDERED: BICITRA ORAL LIQD 30ML PO SCH (16:00)
[2021-04-30] MEDS ORDERED: LIDOCAINE (1%) 10 MG/1 ML VIAL 20 ML MDV ONE (17:18)
[2021-04-30] MEDS ORDERED: BUPIVACAINE/PF (0.5%) 5 MG/1 ML 30 ML VIAL INFILTRATI ONE ×2 (17:18→17:45)
[2021-04-30] MEDS ORDERED: SODIUM CHLORIDE 0.9% IRR 1,500 ML BOTTLE IR ONE (17:46)
[2021-04-30] MEDS ORDERED: LIDOCAINE (1%) 10 MG/1 ML VIAL 20 ML MDV INFILTRATI ONE (17:46)
[2021-04-30] MEDS ORDERED: SUGAMMADEX SODIUM 200 MG/2 ML VIAL IV ONE (18:19)
[2021-04-30] MEDS ORDERED: ONDANSETRON 4 MG/2 ML INJ ONE (18:26)
--- NOTE | 2021-04-30 18:58 | Operative Report ---
Operative Report Operative Report: Date of Service: 04/30/2021 Primary Surgeon: Atilio Alves MD Assisted by: Jyoti Stanley DO Procedure: Laparoscopic Appendectomy Anesthesia: GETA Pre-Operative Diagnosis: acute appendicitis Post-Operative Diagnosis: Same Indications for Procedure: 35 year old female 18 weeks presents to ED with RLQ abdominal pain. MRI of abdomen showed mildly dilated appendix, but she had leukocytosis and significant pain, nausea and vomiting even pain meds. She was consented with the help of certified aerial photograph interpreter for laparoscopic appendectomy. Description of Procedure(s): The patient was brought to the operating room and underwent general anesthesia after lower extremity SCD were placed. A burks catheter was inserted under sterile conditions and the left arm was tucked gently at her side. A bump was placed under her right side to take pressure off of vena cava. The abdomen was prepped and draped in the standard fashion. IV antibiotics were given before hand and a time out was performed. Using a veress needle via a stab incision in the LUQ, the abdomen was insuflated to a pressure of 15mmHg. Using optivew technique, a 5mm trocar was placed just superior and to the left of the umbilicus. There was no gross injury noted to any intra- abdominal structures. After which working trocars were placed under direct visualization. A 12 mm trocar was placed in right upper abdomen, and a 5 mm trocar was inserted in the suprapubic area. The patient was placed in slight Trendelenburg position and tilted towards her left side. The cecum was identified and mobilized, as well as the terminal ileum. There was no gross purulent fluid. The appendix was noted to be retrocecal. The mesoappendix was transected with the LigaSure. The appendix was then taken at its base with a white load on a laparoscopic stapler. The staple line was inspected and found to be hemostatically sound and secure. There was aspiration of inflammatory fluid in the RLQ. The appendix was placed in Endo Catch bag. It was then retrieved via the 12 mm trocar. The fascia was then closed using a O-vicryl and a suture passer device. Trocars removed under direct visualization. The insufflation was then terminated. The skin incisions were closed using 4-0 Monocryl sutures. All the wounds dressed with dermabond. Lidocaine was injected at all incisions. The patient tolerated the procedure well, was extubated and taken to the recovery room in satisfactory condition. Specimen: appendix with signs of inflammation but no perforation Complications: none immediate EBl: minimal Findings: inflamed appendix
--- NOTE | 2021-04-30 20:36 | Post Anesthesia Evaluation ---
- Post Anesthesia Evaluation Patient Participated: Yes Airway Patent: Yes Stable Respiratory Function: Yes Nausea/Vomiting: No Temp > 96.8F: Yes Pain Manageable: Yes Adequeate Hydration: Yes Anesthesia Complications: No
--- NOTE | 2021-04-30 22:36 | Event Note ---
Date: 04/30/21 pt evaluated post op and pt c/o pain to the incision sites. pt desires to eat food. Will give percocet prn pain if pt has bowel sounds. Charge nurse notified. Will discharge her home in am if pt is comfortable and pain controlled. Appreciate surg team.
[2021-04-30] MEDS: oxyCODONE /ACETAMINOPHEN 5-325MG TAB PO PRN (23:00)
[2021-05-01] MEDS: LACTATED RINGERS 1,000 ML IV SCH (02:50)
--- NOTE | 2021-05-01 05:33 | Progress Note ---
Assessment and Plan IUP at 19.1wks, POD#1 laparoscopic appy doing well 1. Discharge home on percocet prn for pain relief and follow up in the ob office in 1wk 2. Appreciate gen surg Dr. Alves Discharge home later this morning Subjective Date of service: 05/01/21 Principal diagnosis: HD#3, POD#1 laparoscopic appendectomy; IUP at 19.1wks Interval history: pt states her pain controlled with percocet med. pt still has no movement as expected and FHR in the 130's by doppler per nurse report. No LOF or vag bleed or ctx. pt has tolerated diet. Objective - Constitutional Vitals: Vital Signs - 12hr 04/30/21 04/30/21 04/30/21 18:40 18:45 19:00 Temperature 98.5 F Pulse Rate 87 81 83 Respiratory 12 14 13 Rate Blood Pressure 101/61 109/64 108/68 O2 Sat by Pulse 100 100 99 Oximetry 04/30/21 04/30/21 04/30/21 19:15 19:30 19:45 Temperature Pulse Rate 78 88 78 Respiratory 15 14 16 Rate Blood Pressure 107/60 111/74 115/63 O2 Sat by Pulse 98 99 98 Oximetry 04/30/21 04/30/21 04/30/21 20:00 20:07 20:12 Temperature 98.6 F Pulse Rate 84 97 H 88 Respiratory 18 Rate Blood Pressure 116/64 O2 Sat by Pulse 98 88 99 Oximetry 04/30/21 04/30/21 04/30/21 20:14 20:17 20:22 Temperature Pulse Rate 85 81 85 Respiratory Rate Blood Pressure 111/60 O2 Sat by Pulse 98 99 Oximetry 04/30/21 04/30/21 04/30/21 20:27 20:32 20:37 Temperature Pulse Rate 85 84 87 Respiratory Rate Blood Pressure 116/64 O2 Sat by Pulse 99 98 98 Oximetry 04/30/21 04/30/21 04/30/21 20:40 20:42 20:47 Temperature Pulse Rate 104 H 96 H 97 H Respiratory Rate Blood Pressure O2 Sat by Pulse 94 99 98 Oximetry 04/30/21 04/30/21 04/30/21 20:48 20:52 20:57 Temperature Pulse Rate 98 H 94 H 94 H Respiratory Rate Blood Pressure 139/75 O2 Sat by Pulse 100 97 Oximetry 04/30/21 04/30/21 04/30/21 21:02 21:07 21:12 Temperature Pulse Rate 89 94 H 92 H Respiratory Rate Blood Pressure 122/66 O2 Sat by Pulse 97 97 96 Oximetry 04/30/21 04/30/21 04/30/21 21:17 21:22 21:27 Temperature Pulse Rate 87 89 89 Respiratory Rate Blood Pressure 117/60 O2 Sat by Pulse 97 98 98 Oximetry 04/30/21 04/30/21 04/30/21 21:32 21:37 21:42 Temperature Pulse Rate 91 H 95 H 91 H Respiratory Rate Blood Pressure 119/63 O2 Sat by Pulse 98 98 98 Oximetry 04/30/21 04/30/21 04/30/21 21:47 21:52 21:57 Temperature Pulse Rate 92 H 86 100 H Respiratory Rate Blood Pressure 119/64 O2 Sat by Pulse 98 99 100 Oximetry 04/30/21 04/30/21 04/30/21 22:02 22:03 22:07 Temperature Pulse Rate 110 H 103 H 87 Respiratory Rate Blood Pressure 127/72 O2 Sat by Pulse 97 97 Oximetry 04/30/21 04/30/21 04/30/21 22:12 22:17 22:22 Temperature Pulse Rate 89 87 91 H Respiratory Rate Blood Pressure 122/59 O2 Sat by Pulse 98 98 97 Oximetry 04/30/21 04/30/21 04/30/21 22:27 22:32 22:37 Temperature Pulse Rate 94 H 91 H 98 H Respiratory Rate Blood Pressure 119/62 O2 Sat by Pulse 97 96 98 Oximetry 04/30/21 04/30/21 04/30/21 22:42 22:44 22:47 Temperature Pulse Rate 99 H 103 H 101 H Respiratory Rate Blood Pressure O2 Sat by Pulse 97 92 99 Oximetry 04/30/21 04/30/21 04/30/21 22:48 22:52 22:57 Temperature Pulse Rate 102 H 104 H 103 H Respiratory Rate Blood Pressure 120/71 O2 Sat by Pulse 98 97 Oximetry 04/30/21 04/30/21 04/30/21 23:02 23:07 23:12 Temperature Pulse Rate 103 H 92 H 85 Respiratory Rate Blood Pressure O2 Sat by Pulse 97 100 100 Oximetry 04/30/21 04/30/21 04/30/21 23:17 23:22 23:27 Temperature Pulse Rate 85 86 103 H Respiratory Rate Blood Pressure 116/61 O2 Sat by Pulse 100 100 98 Oximetry 04/30/21 04/30/21 04/30/21 23:32 23:41 23:46 Temperature Pulse Rate 110 H 93 H 95 H Respiratory Rate Blood Pressure 120/72 O2 Sat by Pulse 100 99 96 Oximetry 04/30/21 04/30/21 04/30/21 23:47 23:51 23:56 Temperature Pulse Rate 93 H 92 H 94 H Respiratory Rate Blood Pressure 109/62 O2 Sat by Pulse 97 97 Oximetry 05/01/21 05/01/21 05/01/21 00:01 00:02 00:06 Temperature Pulse Rate 96 H 96 H 96 H Respiratory Rate Blood Pressure 113/61 O2 Sat by Pulse 98 97 Oximetry 05/01/21 05/01/21 05/01/21 00:11 00:16 00:17 Temperature Pulse Rate 95 H 94 H 97 H Respiratory Rate Blood Pressure 119/68 O2 Sat by Pulse 98 100 Oximetry 05/01/21 05/01/21 05/01/21 00:21 00:26 00:31 Temperature Pulse Rate 117 H 99 H 94 H Respiratory Rate Blood Pressure O2 Sat by Pulse 100 100 96 Oximetry 05/01/21 05/01/21 05/01/21 00:32 00:36 00:41 Temperature Pulse Rate 97 H 89 102 H Respiratory Rate Blood Pressure 118/66 O2 Sat by Pulse 98 96 Oximetry 05/01/21 05/01/21 05/01/21 00:46 00:47 00:51 Temperature Pulse Rate 101 H 96 H 95 H Respiratory Rate Blood Pressure 112/60 O2 Sat by Pulse 96 96 Oximetry 05/01/21 05/01/21 05/01/21 00:56 01:01 01:02 Temperature Pulse Rate 93 H 96 H 96 H Respiratory Rate Blood Pressure 104/59 O2 Sat by Pulse 96 96 Oximetry 05/01/21 05/01/21 05/01/21 01:06 01:11 01:16 Temperature Pulse Rate 95 H 95 H 97 H Respiratory Rate Blood Pressure O2 Sat by Pulse 96 95 96 Oximetry 05/01/21 05/01/21 05/01/21 01:17 01:21 01:26 Temperature Pulse Rate 95 H 94 H 94 H Respiratory Rate Blood Pressure 116/58 O2 Sat by Pulse 96 96 Oximetry 05/01/21 05/01/21 05/01/21 01:31 01:32 01:36 Temperature Pulse Rate 95 H 89 95 H Respiratory Rate Blood Pressure 102/53 O2 Sat by Pulse 96 96 Oximetry 05/01/21 05/01/21 05/01/21 01:41 01:46 01:47 Temperature Pulse Rate 95 H 94 H 93 H Respiratory Rate Blood Pressure 101/54 O2 Sat by Pulse 96 96 Oximetry 05/01/21 05/01/21 05/01/21 01:51 01:56 02:01 Temperature Pulse Rate 97 H 93 H 89 Respiratory Rate Blood Pressure O2 Sat by Pulse 96 96 96 Oximetry 05/01/21 05/01/21 05/01/21 02:03 02:06 02:11 Temperature Pulse Rate 97 H 94 H 93 H Respiratory Rate Blood Pressure 116/57 O2 Sat by Pulse 99 97 Oximetry 05/01/21 05/01/21 05/01/21 02:16 02:17 02:21 Temperature Pulse Rate 93 H 96 H 94 H Respiratory Rate Blood Pressure 109/58 O2 Sat by Pulse 96 96 Oximetry 05/01/21 05/01/21 05/01/21 02:26 02:31 02:32 Temperature Pulse Rate 94 H 93 H 89 Respiratory Rate Blood Pressure 103/53 O2 Sat by Pulse 96 96 Oximetry 05/01/21 05/01/21 05/01/21 02:36 02:41 02:46 Temperature Pulse Rate 88 91 H 83 Respiratory Rate Blood Pressure O2 Sat by Pulse 96 95 97 Oximetry 05/01/21 05/01/21 05/01/21 02:47 02:51 02:56 Temperature Pulse Rate 88 89 89 Respiratory Rate Blood Pressure 99/57 O2 Sat by Pulse 97 96 Oximetry 05/01/21 05/01/21 05/01/21 03:01 03:02 03:06 Temperature Pulse Rate 90 83 89 Respiratory Rate Blood Pressure 83/44 O2 Sat by Pulse 96 96 Oximetry 05/01/21 05/01/21 05/01/21 03:11 03:16 03:17 Temperature Pulse Rate 92 H 89 84 Respiratory Rate Blood Pressure 88/44 O2 Sat by Pulse 96 96 Oximetry 05/01/21 05/01/21 05/01/21 03:21 03:26 03:31 Temperature Pulse Rate 91 H 88 91 H Respiratory Rate Blood Pressure O2 Sat by Pulse 97 96 96 Oximetry 05/01/21 05/01/21 05/01/21 03:32 03:36 03:41 Temperature Pulse Rate 84 83 92 H Respiratory Rate Blood Pressure 85/42 O2 Sat by Pulse 96 98 Oximetry 05/01/21 05/01/21 05/01/21 03:46 03:48 03:51 Temperature Pulse Rate 87 88 90 Respiratory Rate Blood Pressure 106/57 O2 Sat by Pulse 97 96 Oximetry 05/01/21 05/01/21 05/01/21 03:56 04:01 04:02 Temperature Pulse Rate 87 85 83 Respiratory Rate Blood Pressure 106/56 O2 Sat by Pulse 96 96 Oximetry 05/01/21 05/01/21 05/01/21 04:06 04:11 04:18 Temperature Pulse Rate 85 86 81 Respiratory Rate Blood Pressure O2 Sat by Pulse 96 96 97 Oximetry 05/01/21 05/01/21 05/01/21 04:23 04:28 04:33 Temperature Pulse Rate 83 85 89 Respiratory Rate Blood Pressure O2 Sat by Pulse 96 96 96 Oximetry 05/01/21 05/01/21 05/01/21 04:38 04:43 04:48 Temperature Pulse Rate 85 81 87 Respiratory Rate Blood Pressure O2 Sat by Pulse 97 98 97 Oximetry 05/01/21 05/01/21 05/01/21 04:53 04:58 05:03 Temperature Pulse Rate 85 88 86 Respiratory Rate Blood Pressure O2 Sat by Pulse 97 97 97 Oximetry 05/01/21 05/01/21 05/01/21 05:08 05:13 05:18 Temperature Pulse Rate 85 85 86 Respiratory Rate Blood Pressure O2 Sat by Pulse 97 96 96 Oximetry 05/01/21 05:23 Temperature Pulse Rate 89 Respiratory Rate Blood Pressure O2 Sat by Pulse 96 Oximetry General appearance: Present: no acute distress - Neck Neck: normal ROM - Respiratory Respiratory effort: normal - Cardiovascular Rhythm: regular Extremities: No edema - Gastrointestinal General gastrointestinal: Present: soft, non-tender, other (laparoscopic ports x4 all hemostatic with dermabond without erythema) - Genitourinary Female genitourinary: other (FHR 130's by doppler; no ctx on toco;) - Integumentary Integumentary: warm, dry - Neurologic Neurologic: moves all extremities - Psychiatric Psychiatric: cooperative - Labs CBC & Chem 7: 04/30/21 07:15 03/10/22 17:39 Labs: Abnormal lab results 04/30/21 Range/Units 07:15 WBC 14.1 H (4.5-11.0) K/mm3 MCV 73 L (79-97) fl MCH 24 L (28-32) pg RDW 17.4 H (13.2-15.2) % Lymph % (Auto) 12.5 L (13.4-35.0) % Seg Neutrophils % 81.2 H (40.0-70.0) % Seg Neutrophils # 11.4 H (1.8-7.7) K/mm3 Medications & Allergies - Medications Allergies/Adverse Reactions: Allergies No Known Allergies Allergy (Verified 04/29/21 16:34) Home Medications: Home Medications Medication Instructions Recorded Confirmed Last Taken Type oxyCODONE /ACETAMINOPHEN [Percocet 1 tab PO Q4HR PRN 21 Days #30 tab 04/30/21 Unknown Rx 5/325] Active Medications: Generic Name Dose Route Start Last Admin Trade Name Tajq PRN Reason Stop Dose Admin Dextrose/Lactated Ringer's 1,000 mls @ 125 mls/hr 04/29/21 23:00 04/30/21 00:52 D5lr IV 125 mls/hr DIRECT KEVIN Administration Piperacillin Sod/Tazobactam Sod 4.5 gm in 100 mls @ 200 mls/hr 04/30/21 04:00 04/30/21 22:50 Zosyn/Ns 4.5gm/100ml IV 200 mls/hr Q6H KEVIN Administration Protocol Lactated Ringer's 1,000 mls @ 100 mls/hr 04/30/21 15:30 05/01/21 02:50 Lactated Ringers IV 100 mls/hr DIRECT KEVIN Administration Morphine Sulfate 2 mg 04/29/21 22:51 04/30/21 07:50 Morphine 2 Mg/1 Ml Inj IV 2 mg Q4H PRN Administration Pain, Mild (1-3) Oxycodone/Acetaminophen 2 tab 04/30/21 22:42 04/30/21 23:00 Oxycodone /Acetaminophen 5-325mg Tab PO 2 tab Q4H PRN Administration Pain, Moderate (4-6)
[2021-05-01 10:04] VITALS: BP 112/70
[2021-05-01] MEDS: oxyCODONE /ACETAMINOPHEN 5-325MG TAB PO PRN (10:27)
== END 2021-05-01 12:42 | disposition home or self-care (01) | DRG 818 ==
LOC: ED 16:28 → LD 22:11
PROVIDERS: ADMIT Obstetrics & Gynecology; ATTEND Obstetrics & Gynecology
PROC: 0DTJ4ZZ Resection of Appendix, Percutaneous Endoscopic Approach (ICD-10-PCS; principal; 2021-04-30)
DX: O99.612 Diseases of the digestive system complicating pregnancy, second trimester (principal); K35.80 Unspecified acute appendicitis; Z3A.18 18 weeks gestation of pregnancy; O99.282 Endocrine, nutritional and metabolic diseases complicating pregnancy, second trimester; E86.0 Dehydration
CPT/HCPCS: 36415; 74181; 76705; 76810; 80053; 81001; 83690; 84702; 85025; 87086; 88304; G0378; J3490; J7060; J7120; Q0162; J2270; J2405; J2543; J2704; J3010; J7030; J7121